=== PATIENT | female | born 1965 | race Caucasian/White ===

== ENCOUNTER 2022-06-24 06:14 | Day surgery (SDC) | payer OTHER ==
[2022-06-22 11:42] VITALS: BMI 23.1
[2022-06-24] MEDS ORDERED: PROPOFOL 20 ML ONE ×2 (07:02→07:58)
[2022-06-24] MEDS ORDERED: MIDAZOLAM HCL 2 MG/2 ML SINGLE DOSE VIAL ONE (07:02)
[2022-06-24] MEDS ORDERED: SEVOFLURANE 250 ML BTL ONE (07:05)
[2022-06-24] MEDS ORDERED: ONDANSETRON 4 MG/2 ML VIAL ONE ×2 (07:06→11:07)
[2022-06-24] MEDS ORDERED: DEXAMETHASONE SOD PHOSPHATE 4 MG/1 ML VIAL ONE (07:06)
[2022-06-24] MEDS ORDERED: ceFAZolin SODIUM 1 GM VIAL ONE ×2 (07:06)
[2022-06-24] MEDS ORDERED: KETOROLAC TROMETHAMINE 30 MG/1 ML VIAL ONE (07:06)
[2022-06-24] MEDS ORDERED: EPINEPHrine 1:1,000 1,000 MCG/ML ML ONE (07:08)
[2022-06-24] MEDS ORDERED: BUPIVACAINE HCL/PF 2.5 MG/ML - 30 ML VIAL IJ ONE (07:08)
[2022-06-24] MEDS ORDERED: BUPIVACAINE HCL/EPINEPHRINE/PF 30 ML VIAL IJ ONE (07:21)
[2022-06-24] MEDS ORDERED: KETAMINE HCL 200 MG/20 ML VIAL ONE (07:51)
[2022-06-24] MEDS ORDERED: ONDANSETRON 4 MG/2 ML VIAL IVPUSH PRN (08:30)
[2022-06-24] MEDS ORDERED: oxyCODONE HCL 5 MG TABLET PO PRN ×2 (08:30)
[2022-06-24] MEDS ORDERED: ACETAMINOPHEN 325 MG TABLET (FP) PO PRN (08:30)
[2022-06-24] MEDS ORDERED: LACTATED RINGERS SOLUTION 1,000 ML IV SCH (08:30)
[2022-06-24 09:28] VITALS: PULSE 60; RESP 20; TEMP 97.8
[2022-06-24] MEDS ORDERED: ACETAMINOPHEN 325 MG TABLET (FP) ONE (09:38)
[2022-06-24 10:59] VITALS: BP 100/52
== END 2022-06-24 12:05 | disposition home or self-care (01) ==
LOC: FASU 06:14
PROVIDERS: ATTEND Orthopaedic Surgery
PROC: 0SQD4ZZ Repair Left Knee Joint, Percutaneous Endoscopic Approach (ICD-10-PCS; principal; 2022-06-24 08:00)
DX: S83.242A Other tear of medial meniscus, current injury, left knee, initial encounter (principal); X58.XXXA Exposure to other specified factors, initial encounter; Y93.9 Activity, unspecified; Y92.9 Unspecified place or not applicable
CPT/HCPCS: 94760; C1713